=== PATIENT | female | born 1995 | race Caucasian/White ===

== ENCOUNTER 2018-08-15 14:29 | Outpatient (CLI) | payer BC, OTHER ==
--- NOTE | 2018-08-15 15:21 | Non Stress Test Report ---
Non Stress Test Datetime Report Generated by CPN: 08/15/2018 15:20 DEMOGRAPHIC EGA NST: 37.1 INDICATION Indication for Study: Decreased Movement MONITORING Monitor Explained: Monitor Explained; Test Explained; Patient Verbalized Understanding Time on Monitor: 08/15/2018 14:36 Time off Monitor: 08/15/2018 15:11 NST Duration: 35 NST INTERVENTIONS NST Interventions: PO Hydration Physician Notified NST: KTiti Aguirre, CNM BABY A: [id number] BABY A Movement : Present Contraction Frequency : rare FHR Baseline : 135 Accelerations : 15X15 Decelerations : None Variability : Moderate 6-25bpm NST Review: Meets Criteria for Reactive NST NST Review and Verified By : STEPHANE Willoughby Results: Reactive NST REPORT Report Trigger: Send Report
== END 2018-08-15 15:14 | disposition home or self-care (01) ==
LOC: LC 14:29
PROVIDERS: ATTEND Obstetrics & Gynecology
PROC: 4A1HXCZ Monitoring of Products of Conception, Cardiac Rate, External Approach (ICD-10-PCS; principal; 2018-08-15)
DX: O36.8130 Decreased fetal movements, third trimester, not applicable or unspecified (principal); Z3A.37 37 weeks gestation of pregnancy
CPT/HCPCS: 59025

== ENCOUNTER 2018-09-01 08:22 | Outpatient (CLI) | payer BC, OTHER ==
[2018-09-01 13:31] LABS: APPEARANCE,URINE SLIGHTLY-CLOUDY; BILIRUBIN,URINE NEGATIVE (NEGATIVE); COLOR,URINE YELLOW; GLUCOSE, URINE NEGATIVE (NEGATIVE); KETONES,URINE NEGATIVE (NEGATIVE); LEUKOCYTE ESTERASE,URINE NEGATIVE (NEGATIVE); NITRITE,URINE NEGATIVE (NEGATIVE); PROTEIN,URINE NEGATIVE (NEGATIVE); UROBILINOGEN,URINE NEGATIVE mg/dL (<2.0)
[2018-09-01 13:51] LABS: URINE AMPHETAMINES SCREEN NEGATIVE; URINE BARBITURATES SCREEN NEGATIVE; URINE BENZODIAZEPINES SCREEN NEGATIVE; URINE COCAINE SCREEN NEGATIVE; URINE MARIJUANA (THC) SCREEN NEGATIVE; URINE METHADONE SCREEN NEGATIVE; URINE PHENCYCLIDINE SCREEN NEGATIVE
== END 2018-09-01 10:20 | disposition home or self-care (01) ==
LOC: LC 08:22
PROVIDERS: ATTEND Obstetrics & Gynecology
PROC: 4A1HXCZ Monitoring of Products of Conception, Cardiac Rate, External Approach (ICD-10-PCS; principal; 2018-09-01)
DX: O47.1 False labor at or after 37 completed weeks of gestation (principal); Z3A.39 39 weeks gestation of pregnancy
CPT/HCPCS: 59025; 80307; 81005

== ENCOUNTER 2018-09-01 13:24 | Inpatient (IN) | payer BC, OTHER ==
[2018-09-01] MEDS ORDERED: RINGERS SOLUTION,LACTATED 1,000 ML IV ONE (13:55)
[2018-09-01] MEDS ORDERED: RINGERS SOLUTION,LACTATED 1,000 ML IV PRN (13:55)
[2018-09-01] MEDS ORDERED: OXYTOCIN/NORMAL SALINE 0 UNIT/0 ML RTUINJ ONE (14:06)
[2018-09-01] MEDS ORDERED: MISOPROSTOL 0.2 MG TABLET ONE ×2 (14:06→14:45)
[2018-09-01] MEDS ORDERED: LIDOCAINE 1% INJ-PF (10 MG/ML) 30 ML SDV ONE ×2 (14:06→14:45)
[2018-09-01] MEDS ORDERED: OXYTOCIN 10 UNIT/ML VIAL ONE (14:45)
[2018-09-01] MEDS ORDERED: OXYTOCIN/NORMAL SALINE 20 UNIT/1,000 ML RTUINJ ONE (14:46)
[2018-09-01] MEDS ORDERED: KETOROLAC TROMETHAMINE INJ/PF 30 MG/1 ML SDV ONE (15:16)
--- NOTE | 2018-09-01 15:33 | Admission Physical ---
Datetime Report Generated by CPN: 09/01/2018 15:32 CURRENT ADMISSION Indication for Induction: Not Applicable Admit Impression : Term, Intrauterine Admit Plan: Admit to Unit; Initiate Labor Protocol ALLERGIES Medication Allergies: Yes Medication Allergies: Sulfa (Sulfonamide Antibiotics)/NV/Hives (08/15/2018); clavulanic acid/NV/Hives (08/15/2018); amoxicillin/NV/Hives (08/15/2018) Latex: No Latex Allergies Food Allergies: none Environmental Allergies: seasonal OBSTETRICAL HISTORY EDC: 09/04/2018 00:00 : 1 Para: 0 Term: 0 : 0 SAB: 0 IAB: 0 Ectopic: 0 Livin Cesareans: 0 VBACs: 0 Multiple Births: 0 Gestational Diabetes: No Rh Sensitization: No Incompetent Cervix: No EL: No Infertility: No ART Treatment: No Uterine Anomaly: No IUGR: Unknown Hx Previous C/S: No Macrosomia: No Hx Loss/Stillborn: No PIH: No Hx : No Placenta Previa/Abruption: No Depression/PP Depression: No PTL/PROM: No Post Hemorrhage: No Current Procedures: Ultrasound Obstetrical History Comments: G1- current SEE RECORDS Alcohol: No Marijuana : No Cocaine: No Other Illicit Drugs: No Cigarettes: Never Smoker. 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 Surgery: No Heart Disease: No Hosp/Surgery: No Autoimmune Disorder: No Anesthetic Complications: No Kidney Disease: No Abnormal Pap Smear: No Neuro/Epilepsy: No Psychiatric Disorders: No Other Medical Diseases: No Hepatitis/Liver Disease: No Significant Family History: No Varicosities/Phlebitis: No Trauma/Violence : No Thyroid Dysfunction: No Medical History Comments: asthma- has albuterol, INFECTIOUS HISTORY Gonorrhea: No Genital Herpes: No Chlamydia: No Tuberculosis: No Syphilis: No Hepatitis: No HIV/AIDS Exposure: No HPV: No PHYSICAL EXAM General: Normal HEENT: Normal Neurologic: Normal Thyroid: Normal Heart: Normal Lungs: Normal Breast: Normal Back: Normal Abdomen: Normal Genitourinary Exam: Normal Extremities: Normal DTRs: Normal Pelvic Type: Adequate VAGINAL EXAM Dilatation: 10 Effacement: 100 Station: 1 MEMBRANES Membranes: Ruptured Amniotic Fluid Color: Clear FETUS A Monitoring: External US FHR- Baseline: 120 Decelerations: Late; Variable FHR Category: Category II PLANS FOR LABOR AND DELIVERY Labor and Delivery: None Pain Management: Epidural Feeding Preference: Breast Benefit of Breast Feed Discussed: Yes Circumcision: Yes INFORMED CONSENT Signature: with User ID: [email or web address]
[2018-09-01] MEDS ORDERED: DIPH/PERTUSS(ACELL)/TETANUS VAC/PF 0.5 ML SYR (>=10YO) IM PRN (15:36)
[2018-09-01] MEDS ORDERED: DIPHENHYDRAMINE HCL 25 MG CAPSULE PO PRN (15:36)
[2018-09-01] MEDS ORDERED: GLYCERIN/WITCH HAZEL LEAF 1 EACH MED..PAD TP PRN (15:36)
[2018-09-01] MEDS ORDERED: NA PHOS,M-B/NA PHOS,DI-BA (ADULT) 133 ML ENEMA PR PRN (15:36)
[2018-09-01] MEDS ORDERED: DIBUCAINE 1% OINTMENT 28 GM TP PRN (15:36)
[2018-09-01] MEDS ORDERED: ZOLPIDEM TARTRATE 5 MG TABLET PO PRN (15:36)
[2018-09-01] MEDS ORDERED: PROMETHAZINE HCL 25 MG SUPP.RECT PR PRN (15:36)
[2018-09-01] MEDS ORDERED: MEASLES,MUMPS&RUBELLA VACC/PF 0.5 ML VIAL SUBCUT PRN (15:36)
[2018-09-01] MEDS ORDERED: ACETAMINOPHEN 650 MG SUPP.RECT PR PRN (15:36)
[2018-09-01] MEDS ORDERED: OXYTOCIN/NORMAL SALINE 20 UNIT/1,000 ML RTUINJ IV PRN (15:36)
[2018-09-01] MEDS ORDERED: PSEUDOEPHEDRINE HCL 30 MG TABLET PO PRN (15:36)
[2018-09-01] MEDS ORDERED: MAGNESIUM HYDROXIDE SUSP 30 ML UDCUP PO PRN (15:36)
[2018-09-01] MEDS ORDERED: ACETAMINOPHEN WITH CODEINE #3 TABLET PO PRN ×2 (15:36)
[2018-09-01] MEDS ORDERED: PROMETHAZINE HCL 25 MG TABLET PO PRN (15:36)
[2018-09-01] MEDS ORDERED: BENZOCAINE/MENTHOL AEROSOL SPRAY 56 ML TOP PRN (15:36)
[2018-09-01] MEDS ORDERED: PROMETHAZINE HCL INJ 25 MG/1 ML VIAL IV PRN (15:36)
[2018-09-01 15:37] LABS: ABSOLUTE LYMPHOCYTES (AUTO) 1.2 10^3/uL (0.5-4.7); ABSOLUTE MONOCYTES (AUTO) 0.8 10^3/uL (0.1-1.4); ABSOLUTE NEUT (AUTO) 15.9 10^3/uL (1.7-8.2); BASOPHILS % (AUTO) 0.2 % (0-2); HEMATOCRIT 36.7 % (36.0-47.0); HEMOGLOBIN 12.3 g/dL (12.0-15.5); LYMPHOCYTES % (AUTO) 6.9 % (13-45); MEAN CORPUSCULAR HEMOGLOBIN 26.4 pg (27.0-33.4); MEAN CORPUSCULAR HGB CONC 33.7 g/dL (32.0-36.0); MEAN CORPUSCULAR VOLUME 79 fl (80-97); MONOCYTES % (AUTO) 4.2 % (3-13); PLATELET COUNT 263 10^3/uL (150-450); RED BLOOD COUNT 4.67 10^6/uL (3.72-5.28); RED CELL DISTRIBUTION WIDTH 13.7 % (11.5-14.0); SEGMENTED NEUTROPHILS % (AUTO) 88.7 % (42-78); TOTAL CELLS COUNTED % (AUTO) 100 %
--- NOTE | 2018-09-01 15:40 | PDOC DELIVERY SUMMARY ---
Delivery Summary - Maternal Hx : I Hx Para: 0 Hx # Term Pregnancies: 0 Hx # Pregnancies: 0 Hx Total # of Abortions (Sponateous & Elective): 0 Number of Living Children: 0 CUBA: 09/04/18 Gestational Age: 39.4 Ruptured Membranes: SROM Fluids: Clear - Delivery Labor: Precipitous-Less Than 3 Hours Presentation: Vertex Heart Rate Monitoring: Externally Uterine Contraction Monitoring: External Pattern: Late Decels, Other: Document in Pattern Other, Variable Decels Support Person Present: Yes Location: LD Placenta: Within Normal Limits Placenta Description: normal appearing 3 VC Number of Vessels (Cord): 3 Nuchal Cord: Yes - 1 loose Delivery of Placenta Date: 09/01/18 Estimated Blood Loss: 200 ml - Medications Type of Anesthesia:: Local - 1 % lidocaine - Delivery Personnel MD: NUBIA CLAYTON
--- NOTE | 2018-09-01 17:49 | Delivery Summary ---
Del Sum A-C Datetime Report Generated by CPN: 09/01/2018 17:49 DELIVERY PERSONNEL DELIVERY PERSONNEL: [id number] Delivery Doctor:: Dr. Fernandez Labor and Delivery Nurse:: Zo Butler RNore crushing dust collector Nurse:: OSVALDO Parish Whistle Punk/ACOUSTICAL TILE PATTERNMAKER: Martha Deems, DRAMA TEACHER MATERNAL INFORMATION Delivery Anesthesia: None Medications After Delivery: Pitocin Bolus-Please Comment Maternal Complications: None LABOR SUMMARY EDC: 09/04/2018 00:00 No. Babies in Womb: 1 Attempted: No Labor Anesthesia: None LABOR INFORMATION Reason for Induction: Not Applicable Onset of Labor: 09/01/2018 05:00 Complete Dilatation: 09/01/2018 14:52 Oxytocin: N/A Group B Beta Strep: negative Antibiotics # of Doses: 0 Antibiotics Time of Last Dose: n/a Name of Antibiotic Given: n/a Steroids Given: None Reason Steroids Not Administered: Not Applicable MEMBRANES Membranes Rupture Method: Spontaneous Rupture of Membranes: 09/01/2018 14:35 Length of Rupture (hr): 0.58 Amniotic Fluid Color: Clear Amniotic Fluid Amount: Moderate Amniotic Fluid Odor: Normal STAGES OF LABOR Stage 1 hr: 9 Stage 1 min: 52 Stage 2 hr: 0 Stage 2 min: 18 Stage 3 hr: 0 Stage 3 min: 5 Total Time in Labor hr: 10 Total Time in Labor min: 15 VAGINAL DELIVERY Episiotomy: None Laceration #1: Perineal Laceration Extension #1: Second Degree Laceration #2: Periurethral Laceration Extension #2: First Degree Laceration #3: None Laceration Extension #3: N/A Laceration Repair: Yes Laceration Repair Note: 3-0 vicryl on perineal 3-0 chromic on periurethral Sponge Count Correct: N/A Sharps Count Correct: N/A CSECTION DELIVERY Primary Indication: N/A Secondary Indication: N/A CSection Incidence: N/A Labor: N/A Elective: N/A CSection Incision: N/A BABY A INFORMATION Infant Delivery Date/Time: 09/01/2018 15:10 Method of Delivery: Vaginal Born in Route : No : N/A Forceps: N/A Vacuum Extraction: N/A Shoulder Dystocia : No PRESENTATION/POSITION BABY A Presentation: Cephalic Cephalic Presentation: Vertex Vertex Position: Right Occipital Anterior Breech Presentation: N/A PLACENTA INFORMATION BABY A Placenta Delivery Time : 09/01/2018 15:15 Placenta Method of Delivery: Spontaneous Placenta Status: Delivered SCORES BABY A Heart Rate 1 min: >100 bpm Resp Effort 1 min: Good Cry Reflex Irritability 1 min: Cough or Sneeze or Pulls Away Muscle Tone 1 min: Active Motion Color 1 min: Blue/Pale Resuscitation Effort 1 min: Tactile Stimulation SCORE 1 MIN: 8 Heart Rate 5 min: >100 bpm Resp Effort 5 min: Good Cry Reflex Irritability 5 min: Cough or Sneeze or Pulls Away Muscle Tone 5 min: Active Motion Color 5 min: Blue/Pale Resuscitation Effort 5 min: Tactile Stimulation SCORE 5 MIN: 8 INFORMATION BABY A Gestational Age at Delivery: 39.4 Gestational Status: Full Term- 39- 40.6 Weeks Outcome : Liveborn Infant Condition : Stable Infant Sex: Male IDENTIFICATION BABY A Verification Date/Time: 09/01/2018 15:24 ID Band Number: [id number] Mother's Name Verified: Yes Infant RN Verifying : H. Royal, RN and B. Baidy, RN WEIGHT/LENGTH BABY A Birthweight (gm): 3130 Infant Weight (lb): 6 Infant Weight (oz): 14 Infant Length (in): 19.50 Length (cm): 49.53 CORD INFORMATION BABY A No. Cord Vessels: 3 Nuchal Cord : N/A Cord Blood Taken: Yes-For Storage (Mom's Blood type +) Infant Suction: Mouth ASSESSMENT BABY A Complications: None Physical Findings at Delivery: Within Normal Limits Respirations: Appears Normal Skin to Skin: Yes Skin to Skin Time (min): 90 Barrow Worker/ALS Called : No Care By: B Diandra RN Transferred To: Remains with Mother BABY B INFORMATION : N/A SIGNATURES Signature: with User ID: [email or web address]
[2018-09-01] MEDS: DOCUSATE SODIUM 100 MG CAPSULE PO SCH (17:59)
[2018-09-01] MEDS: FERROUS SULFATE 325 MG TABLET PO SCH (17:59)
[2018-09-01] MEDS: FAMOTIDINE 20 MG TABLET PO SCH (21:31)
[2018-09-01] MEDS: IBUPROFEN 800 MG TABLET PO SCH (21:31)
[2018-09-02] MEDS: IBUPROFEN 800 MG TABLET PO SCH ×3 (05:44→22:29)
[2018-09-02 08:30] LABS: HEMATOCRIT 28.1 % (36.0-47.0); MEAN CORPUSCULAR HEMOGLOBIN 26.4 pg (27.0-33.4); MEAN CORPUSCULAR VOLUME 80 fl (80-97); PLATELET COUNT 233 10^3/uL (150-450); RED BLOOD COUNT 3.52 10^6/uL (3.72-5.28); RED CELL DISTRIBUTION WIDTH 13.7 % (11.5-14.0); WHITE BLOOD COUNT 15.1 10^3/uL (4.0-10.5)
[2018-09-02 08:31] LABS: HEMOGLOBIN 9.3 g/dL (12.0-15.5)
[2018-09-02] MEDS ORDERED: (PENDING PHARMACY ID) (Prenatal Vits96/Iron Fum/Folic [Prenatal Tablet] 1 TAB) PO SCH (10:00)
[2018-09-02] MEDS: PRENATAL VITAMIN W DHA CAPSULE PO SCH (10:06)
[2018-09-02] MEDS: DOCUSATE SODIUM 100 MG CAPSULE PO SCH ×2 (10:06→18:23)
[2018-09-02] MEDS: SENNOSIDES/DOCUSATE 8.6-50 MG 1 EACH TABLET PO SCH (10:06)
[2018-09-02] MEDS: FAMOTIDINE 20 MG TABLET PO SCH ×2 (10:06→22:30)
[2018-09-02] MEDS: FERROUS SULFATE 325 MG TABLET PO SCH ×2 (10:06→18:23)
--- NOTE | 2018-09-02 10:23 | PDOC PROGRESS REPORT ---
Subjective-OB Progress Note for:: 09/02/18 Subjective: Doing well, no c/o voiding, eating well Physical Exam (OB) Vital Signs: Temp Pulse Resp BP Pulse Ox 98.9 F 86 18 126/59 H 97 09/02/18 07:54 09/02/18 07:54 09/02/18 07:54 09/02/18 07:54 09/02/18 07:54 Intake & Output 09/01/18 09/02/18 09/03/18 06:59 06:59 06:59 Weight 84.9 kg - PIH/Pre-Eclampsia Clonus: Negative Headache: Absent Epigastric Pain: No Visual Changes: No - Lochia Lochia Amount: Scant < 10 ml Lochia Color: Rubra/Red - Abdomen Description: Tender, Soft Hernia Present: No Fundal Description: Firm, Midline Fundal Height: u/u - u/2 Objective-Diagnostic Laboratory: 09/02/18 08:14 09/01/18 09/01/18 09/02/18 14:51 14:51 08:14 WBC 18.0 H 15.1 H RBC 4.67 3.52 L Hgb 12.3 9.3 L D Hct 36.7 28.1 L MCV 79 L 80 MCH 26.4 L 26.4 L MCHC 33.7 33.0 RDW 13.7 13.7 Plt Count 263 233 Seg Neutrophils % 88.7 H Lymphocytes % 6.9 L Monocytes % 4.2 Eosinophils % 0.0 Basophils % 0.2 Absolute Neutrophils 15.9 H Absolute Lymphocytes 1.2 Absolute Monocytes 0.8 Absolute Eosinophils 0.0 Absolute Basophils 0.0 Blood Type A POSITIVE Antibody Screen NEGATIVE Assessment and Plan(PN) - Assessment and Plan (1) Asthma Qualifiers: Asthma complication type: unspecified Is this a current diagnosis for this admission?: Yes (2) Delivery normal Is this a current diagnosis for this admission?: Yes (3) Anemia Qualifiers: Other causes of anemia: acute posthemorrhagic Is this a current diagnosis for this admission?: Yes - Time Spent with Patient Time with patient: Less than 15 minutes Medications reviewed and adjusted accordingly: Yes - Disposition Anticipated Discharge: Home
[2018-09-03] MEDS: IBUPROFEN 800 MG TABLET PO SCH ×2 (05:28→13:19)
[2018-09-03 08:26] VITALS: BP 123/64
[2018-09-03] MEDS: SENNOSIDES/DOCUSATE 8.6-50 MG 1 EACH TABLET PO SCH (10:12)
[2018-09-03] MEDS: FAMOTIDINE 20 MG TABLET PO SCH (10:12)
[2018-09-03] MEDS: PRENATAL VITAMIN W DHA CAPSULE PO SCH (10:12)
[2018-09-03] MEDS: DOCUSATE SODIUM 100 MG CAPSULE PO SCH (10:12)
[2018-09-03] MEDS: FERROUS SULFATE 325 MG TABLET PO SCH (10:12)
--- NOTE | 2018-09-03 10:33 | PDOC DISCHARGE SUMMARY ---
Final Diagnosis Discharge Date: 09/03/18 - PP Day #2, doing well, Discharge Data - Discharge Medication Home Medications: Vits96/Iron Fum/Folic [ Tablet] 1 tab PO DAILY 08/15/18 Reason(s) for Admission: Onset of Labor Procedures: Ultrasound Intrapartum Procedure(s): Spontaneous Vaginal Delivery Complication(s): Laceration-Vaginal, Laceration-Periurethral Laceration-Degree: 1st - Diagnosis Test Laboratory: Temp Pulse Resp BP Pulse Ox 97.9 F 72 18 123/64 97 09/03/18 07:51 09/03/18 07:51 09/03/18 07:51 09/03/18 07:51 09/03/18 07:51 09/01/18 09/02/18 14:51 08:14 RBC 4.67 3.52 L Hgb 12.3 9.3 L D Hct 36.7 28.1 L - Discharge information/Instructions Discharge Activity: Activity As Tolerated, No Lifting Over 10 Pounds, Pelvic Rest Discharge Diet: As Tolerated, Regular Disposition: HOME, SELF-CARE Follow up with: [facility] in: 4, Weeks
== END 2018-09-03 13:29 | disposition home or self-care (01) | DRG 806 ==
LOC: LC 13:24 → LR 14:08 → 2S 17:30
PROVIDERS: ADMIT Obstetrics & Gynecology; ATTEND Obstetrics & Gynecology
PROC: 10E0XZZ Delivery of Products of Conception, External Approach (ICD-10-PCS; principal; 2018-09-01)
PROC: 0KQM0ZZ Repair Perineum Muscle, Open Approach (ICD-10-PCS; 2018-09-01)
PROC: 4A1HXCZ Monitoring of Products of Conception, Cardiac Rate, External Approach (ICD-10-PCS; 2018-09-01)
DX: O76 Abnormality in fetal heart rate and rhythm complicating labor and delivery (principal); D62 Acute posthemorrhagic anemia; Z37.0 Single live birth; O71.82 Other specified trauma to perineum and vulva; O70.1 Second degree perineal laceration during delivery; Z3A.39 39 weeks gestation of pregnancy; O99.02 Anemia complicating childbirth; O99.52 Diseases of the respiratory system complicating childbirth; J45.909 Unspecified asthma, uncomplicated; O69.81X0 Labor and delivery complicated by cord around neck, without compression, not applicable or unspecified; Z88.2 Allergy status to sulfonamides
CPT/HCPCS: 36415; 85025; 85027; 86592; 86850; 86900; 86901; J1885; J2590; J3490

== ENCOUNTER 2018-09-19 21:05 | Emergency (ER) | payer OTHER, BC ==
[2018-09-19 21:22] VITALS: BP 122/56
--- NOTE | 2018-09-19 22:49 | ER Document Report ---
ED General - General Chief Complaint: Breast Problem Stated Complaint: BREAST ISSUE Time Seen by Provider: 09/19/18 22:23 Notes: Patient is a 22-year-old female that presents to the emergency department for chief complaint of left breast pain. Patient is approximately 3 weeks , the presents to the emergency department for chief complaint of left breast pain. She states she is noticed that around 1 spot in the left lateral region of her breast. It is tender to palpate. She denies noting any redness, or having any fevers although she felt somewhat warm at home. She has been taking ibuprofen to help with the pain which does give some relief. She denies any lightheadedness, dizziness, chest pain or shortness of breath difficulty breathing, or any nausea, vomiting or abdominal pain. She currently rates the pain she is having is a 1 out of 10, but is worse with palpating in that region she describes as an aching sensation. Past Medical History: Denies chronic medical conditions Past Surgical History: Denies surgical history Social History: Denies tobacco, alcohol or drug use. Family History: Reviewed and noncontributory for presenting illness Allergies: Reviewed, see documented allergy list. REVIEW OF SYSTEMS: Other than noted above, the 12 point review of systems was reviewed with the patient and were negative, all pertinent findings are included in the HPI. PHYSICAL EXAMINATION: Vital signs reviewed, nursing noted reviewed. GENERAL: Well-appearing, well-nourished and in no acute distress. HEAD: Atraumatic, normocephalic. EYES: Eyes appear normal, extraocular movements intact, sclera anicteric, conjunctiva are normal. ENT: nares patent, oropharynx clear without exudates. Moist mucous membranes. NECK: Normal range of motion, supple without lymphadenopathy LUNGS: Breath sounds clear to auscultation bilaterally and equal. No wheezes rales or rhonchi. HEART: Regular rate and rhythm without murmurs Breast exam: With a female fermentation manager present, the patient's left breast was palpated, and she did have some tenderness and a focal area, that was more full , most likely a blocked milk duct, there is no erythema or generalized tenderness to the left breast. The right breast was nontender. ABDOMEN: Soft, nontender, normoactive bowel sounds. No rebound, guarding, or rigidity. No masses appreciated. EXTREMITIES: Nontender, good range of motion, no pitting or edema. NEUROLOGICAL: No focal neurological deficits. Moves all extremities spontaneously Motor and sensory grossly intact on exam. PSYCH: Normal mood, normal affect. SKIN: Warm, Dry, normal turgor, no rashes or lesions noted on exposed skin TRAVEL OUTSIDE OF THE [place] IN LAST 30 DAYS: No - Related Data Allergies/Adverse Reactions: amoxicillin Allergy (Mild, Verified 08/15/18 15:06) Hives clavulanic acid [From Augmentin] Allergy (Mild, Verified 08/15/18 15:06) Hives Sulfa (Sulfonamide Antibiotics) Allergy (Mild, Verified 08/15/18 15:06) Hives Past Medical History - Social History Smoking Status: Never Smoker Family History: Reviewed & Not Pertinent Patient has suicidal ideation: No Patient has homicidal ideation: No Renal/ Medical History: Denies: Hx Peritoneal Dialysis Physical Exam - Vital signs Vitals: Temp Pulse Resp BP Pulse Ox 98 F 106 H 16 122/56 L 98 09/19/18 21:06 09/19/18 21:06 09/19/18 21:06 09/19/18 21:06 09/19/18 21:06 Course - Re-evaluation Re-evalutation: Patient seen and examined vital signs reviewed. Patient was evaluated and treated as appropriate for the patient's presenting symptoms and complaint, with consideration of any critical or life threatening conditions that may be associated with their obtained history and exam as noted above. The patient was re-evaluated and was stable Evaluation was most consistent with blocked milk duct, no evidence of mastitis, or inflammation such as erythema on exam, patient given advice for massage, to take Tylenol if needed, to continue breast-feeding to help improve this, and she is also advised that she could use cabbage leaves to help relieve some of her pain as well. Plan of care was discussed with the patient at this point, after careful consideration I feel that that patient can be discharged from the emergency department, the patient was educated treatments and reasons to return to the emergency department based on their presumed diagnosis as noted above, they were advised to followup with a primary care physician in 2-3 days. Patient was agreeable to plan of care. *Note is created using voice recognition software and may contain spelling, syntax or grammatical errors. - Vital Signs Vital signs: Temp Pulse Resp BP Pulse Ox 98 F 106 H 16 122/56 L 98 09/19/18 21:06 09/19/18 21:06 09/19/18 21:06 09/19/18 21:06 09/19/18 21:06 Discharge - Discharge Clinical Impression: breast pain Condition: Stable Disposition: HOME, SELF-CARE Instructions: Mastitis ([facility]) Additional Instructions: Please follow-up with your BRUSH PAINTER, call for an appointment, if you have any worsening symptoms or signs of redness or severe pain, do not hesitate to return to the emergency department. Referrals: [facility] [Provider Group] - Follow up as needed
== END 2018-09-19 22:58 | disposition home or self-care (01) ==
LOC: ER 21:05
DX: O92.29 Other disorders of breast associated with pregnancy and the puerperium (principal); Z88.0 Allergy status to penicillin; Z88.2 Allergy status to sulfonamides
CPT/HCPCS: 99283